=== PATIENT | female | born 1990 | race Two or more races ===

== ENCOUNTER → 2025-07-23 | Outpatient (CLI) | payer MEDICAID, SELFPAY ==
--- NOTE | 2025-07-23 08:45 | XR_ITS ---
Study: Abdomen ultrasound. INDICATION: Bilateral flank pain for 2 weeks. TECHNIQUE: Grayscale ultrasound with color flow Doppler. 77 images at 0854 hours 23 July 2025. FINDINGS: The gallbladder is thin-walled and free from stones. The common bile duct measures 0.4 cm. The liver measures 13.0 cm in the midclavicular line and is diffusely hyperechoic. Liver margination is smooth. There are no cysts, solid masses, ectatic ducts. Portal vein blood flow is toward the liver. The head and the portion of the body of the pancreas are normal in echogenicity and size. The balance of the pancreas is obscured by bowel gas. The inferior vena cava is patent. The main portal vein is patent. The aorta is normal in caliber. The right kidney measures 10.0 x 5.8 x 5.2 cm and the cortex measures 1.4 cm. The left kidney measures 10.2 x 4.9 x 4.5 cm and the cortex measures 1.5 cm. The corticomedullary junctions are sharply defined and normal in appearance. There is no cyst, solid mass, stone or hydronephrosis. The spleen measures 8.2 cm and is normally echogenic. There is no ascites. IMPRESSION: Fatty liver only.
== END | disposition home or self-care (01) ==
PROVIDERS: PCP Physician Assistant; Referring Provider Physician Assistant; Visit Provider Physician Assistant
DX: K76.0 Fatty (change of) liver, not elsewhere classified (principal)
CPT/HCPCS: 76700